=== PATIENT | male | born 2000 | race Caucasian/White ===

== ENCOUNTER 2025-01-08 13:32 | Emergency (ER) | payer BC, OTHER ==
[2025-01-08] MEDS: Acetaminophen 325 MG Tab PO ONE (14:45)
== END 2025-01-08 15:10 | disposition home or self-care (01) ==
LOC: DL.ED 13:32
DX: S09.90XA Unspecified injury of head, initial encounter (principal); V00.181A Fall from other rolling-type pedestrian conveyance, initial encounter; Y93.89 Activity, other specified
CPT/HCPCS: 70450; 99283; A9270